=== PATIENT | male | born 1970 | race Caucasian/White ===

== ENCOUNTER 2017-10-26 20:24 | Emergency (ER) | payer SELFPAY ==
[~2017-10-26] VITALS: Ht 175.3 cm; Wt 71.0 kg
[2017-10-26 23:48] VITALS: BP 121/83
[2017-10-27] MEDS ORDERED: CEFTRIAXONE SODIUM 250 MG/VIAL IM ONE
[2017-10-27] MEDS ORDERED: AZITHROMYCIN 500 MG TABLET PO ONE
[2017-10-27] MEDS ORDERED: LIDOCAINE HCL 1% 20ML VIAL (Pyxis) INJ MC ONE (00:15)
== END 2017-10-27 01:18 | disposition home or self-care (01) ==
LOC: ER 21:34
DX: R30.0 Dysuria (principal); F17.200 Nicotine dependence, unspecified, uncomplicated
CPT/HCPCS: 96372; 99283; J0696; J3490

== ENCOUNTER 2018-08-29 18:53 | Emergency (ER) | payer MEDICAID ==
[~2018-08-29] VITALS: Ht 175.3 cm; Wt 70.0 kg
[2018-08-29 19:00] VITALS: BP 137/86
== END 2018-08-30 | disposition left against medical advice (07) ==
LOC: ER 18:53
DX: Z53.21 Procedure and treatment not carried out due to patient leaving prior to being seen by health care provider (principal)

== ENCOUNTER 2023-05-02 21:19 | Emergency (ER) | payer MEDICAID, OTHER ==
[~2023-05-02] VITALS: Ht 175.3 cm; Wt 71.0 kg
[2023-05-02 22:18] VITALS: O2SAT 97
[2023-05-02] MEDS ORDERED: IBUPROFEN 800MG TABLET PO ONE (23:45)
[2023-05-03] MEDS: IBUPROFEN 400MG TABLET PO NR ×3 (00:27→01:55)
[2023-05-03] MEDS ORDERED: IBUP-2030 MT (02:46)
[2023-05-03 03:15] VITALS: BP 128/76; PULSE 84; RESP 16
== END 2023-05-03 03:16 | disposition home or self-care (01) ==
LOC: ER 21:19
DX: S22.32XA Fracture of one rib, left side, initial encounter for closed fracture (principal); Y08.89XA Assault by other specified means, initial encounter; Y93.89 Activity, other specified; Y92.89 Other specified places as the place of occurrence of the external cause; Y99.8 Other external cause status
CPT/HCPCS: 71101; 71250; 99284

== ENCOUNTER 2023-09-02 23:09 | Emergency (ER) | payer OTHER ==
[~2023-09-02] VITALS: Ht 175.3 cm; Wt 72.0 kg
[~2023-09-02 23:09] MED LIST: IBUP-2030 MT
[2023-09-02 23:18] VITALS: TEMP 97.9; O2SAT 98
[2023-09-03] MEDS ORDERED: SULF1TAB48 MT (01:49)
[2023-09-03] MEDS ORDERED: AMOX1TAB16 MT (01:49)
[2023-09-03 02:31] VITALS: BP 120/67; PULSE 96; RESP 18
== END 2023-09-03 02:32 | disposition home or self-care (01) ==
LOC: ER 23:09
DX: L02.31 Cutaneous abscess of buttock (principal); B95.8 Unspecified staphylococcus as the cause of diseases classified elsewhere
CPT/HCPCS: 99283

== ENCOUNTER 2024-01-13 15:53 | Emergency (ER) | payer OTHER ==
[~2024-01-13] VITALS: Ht 170.2 cm; Wt 68.0 kg
[~2024-01-13 15:53] MED LIST changes: +AMOX1TAB16 MT; +SULF1TAB48 MT
[2024-01-13 16:38] VITALS: TEMP 98; O2SAT 99
[2024-01-13] MEDS ORDERED: IBUPROFEN 400MG TABLET PO ONE (17:45)
[2024-01-13] MEDS ORDERED: ACETAMINOPHEN 325MG TABLET PO ONE (17:45)
[2024-01-13 20:15] VITALS: BP 121/66; PULSE 87; RESP 16
[2024-01-13] MEDS: ACETAMINOPHEN 325MG TABLET PO NR (20:15)
[2024-01-13] MEDS: IBUPROFEN 400MG TABLET PO NR (20:15)
== END 2024-01-13 20:00 | disposition left against medical advice (07) ==
LOC: ER 15:53
DX: M79.605 Pain in left leg (principal); I10 Essential (primary) hypertension
CPT/HCPCS: 93971; 99284